=== PATIENT | male | born 1990 | race Caucasian/White ===

== ENCOUNTER 2017-07-06 12:17 | Emergency (ER) | payer SELFPAY ==
[2017-07-06 12:46] VITALS: PULSE 70; TEMP 98.5; O2SAT 100
--- NOTE | 2017-07-06 13:54 | RAD ---
HISTORY: cp COMPARISON: No prior. TECHNIQUE: Chest PA and lateral FINDINGS: LUNGS: No active pulmonary disease. PLEURA: No significant pleural effusion identified. No pneumothorax apparent. CARDIOVASCULAR: Normal. OSSEOUS STRUCTURES: No significant abnormalities. VISUALIZED UPPER ABDOMEN: Normal. OTHER FINDINGS: None. IMPRESSION: No active disease.
[2017-07-06 13:58] VITALS: BP 132/76; RESP 18
--- NOTE | 2017-07-06 13:58 | C.PDOC ---
History Of Present Illness 26 y/o male presents to the ER complaining of midsternal chest pain which has been present for the past 1 month. Patient describes the pain as " stabbing". Denies having trauma, fever, and chills. Time Seen by Provider: 07/06/17 13:04 Chief Complaint (Nursing): Chest Pain History Per: Patient History/Exam Limitations: no limitations Onset/Duration Of Symptoms: Days Current Symptoms Are (Timing): Still Present Severity: Moderate Past Medical History Reviewed: Historical Data, Nursing Documentation, Vital Signs Vital Signs: Last Vital Signs Temp 98.5 F 07/06/17 12:25 Pulse 70 07/06/17 13:57 Resp 18 07/06/17 13:57 BP 132/76 07/06/17 13:57 Pulse Ox 100 07/06/17 14:16 - Medical History PMH: No Chronic Diseases Surgical History: No Surg Hx Family History: States: No Known Family Hx - Social History Hx Alcohol Use: No Hx Substance Use: No - Immunization History Hx Tetanus Toxoid Vaccination: No Hx Influenza Vaccination: No Hx Pneumococcal Vaccination: No Review Of Systems Except As Marked, All Systems Reviewed And Found Negative. Constitutional: Negative for: Fever, Chills Cardiovascular: Positive for: Chest Pain Physical Exam - Physical Exam Appears: Non-toxic, No Acute Distress Skin: Normal Color, Warm, Dry Head: Atraumatic, Normacephalic Eye(s): bilateral: Normal Inspection Nose: Normal Oral Mucosa: Moist Neck: Supple Chest: Symmetrical Cardiovascular: Rhythm Regular Respiratory: Normal Breath Sounds, No Rales, No Rhonchi, No Wheezing Neurological/Psych: Oriented x3, Normal Speech ED Course And Treatment ECG: Interpreted By Me, Viewed By Me ECG Rhythm: Sinus Rhythm Interpretation Of ECG: NSR with early ST elevation probably due to early repolarization Rate From EC O2 Sat by Pulse Oximetry: 100 (RA) Pulse Ox Interpretation: Normal - Radiology CXR: Interpreted by Me, Viewed By Me CXR Interpretation: Yes: No Acute Disease Medical Decision Making Medical Decision Making: Plan: --CXR --Tylenol PO Updates: Patient has been discharged and instructed to follow up with PMD and return to ER if symptoms worsen. cxr neg. not tachycardic, perc neg. no h/o of bleeding, doubt anemia. atypical pain 1 mo. Disposition - Disposition Referrals: Sher Marino MD [Staff Provider] - Disposition: HOME/ ROUTINE Disposition Time: 13:52 Condition: STABLE Additional Instructions: please follow up with your doctor/clinic and specialist. return toe r with worsening symptoms or concerns. Instructions: Chest Pain Forms: [facility] (Latvian) - Clinical Impression Clinical Impression: Chest pain - Scribe Statement The provider has reviewed the documentation as recorded by the Scribe Emma Pyle Provider Attestation: All medical record entries made by the Scribe were at my direction and personally dictated by me. I have reviewed the chart and agree that the record accurately reflects my personal performance of the history, physical exam, medical decision making, and the department course for this patient. I have also personally directed, reviewed, and agree with the discharge instructions and disposition.
== END 2017-07-06 13:58 | disposition home or self-care (01) ==
LOC: C.ER 12:17
DX: R07.9 Chest pain, unspecified (principal)